=== PATIENT | female | born 1965 | race Caucasian/White ===

== ENCOUNTER 2021-06-19 00:31 | Emergency (ER) | payer OTHER ==
--- NOTE | 2021-06-19 01:37 | CT ---
INDICATION: Medial superior periorbital pain after a fall. COMPARISON: None available TECHNIQUE: CT examination of the facial bones is performed without contrast enhancement using spiral technique. 0.8 mm thick axial, and 1 mm thick coronal and sagittal sections were obtained from the data. Please note that all CT scans at this facility use dose modulation, iterative reconstruction, and/or weight-based dosing when appropriate to reduce radiation dose to as low as reasonably achievable. FINDINGS: There is mild left supraorbital soft tissue swelling with no sign of any associated fracture of the left superior orbital rim or adjacent frontal sinus. There is no sign of facial fracture on today`s study. The orbits, zygomatic arches, nasal bones, maxillae, and mandible are normal in appearance. The paranasal sinuses are clear. The mastoids are clear. The intraorbital soft tissue structures are unremarkable. The airway structures are normal in appearance. IMPRESSION: Mild left supraorbital soft tissue swelling with no sign of any associated fracture of the left superior orbital rim or adjacent frontal sinus. Otherwise normal CT of the facial bones with no sign of acute osseous injury. Please note that all CT scans at this facility use dose modulation, iterative reconstruction, and/or weight-based dosing when appropriate to reduce radiation dose to as low as reasonably achievable. Dictated by Dayne Lott MD @ 06/19/2021 1:36:47 AM (Electronically Signed)
--- NOTE | 2021-06-19 01:45 | EDM.PDOC ---
ED [facility] GENERAL MEDICAL PROBLEM - General Chief Complaint: General Stated Complaint: FELL ON ICE Time Seen by Provider: 06/19/21 00:35 - Related Data Allergies Allergy/AdvReac Type Severity Reaction Status Date / Time No Known Allergies Allergy Verified 06/19/21 00:37 Home Meds: Home Meds ALPRAZolam [Alprazolam] 1 dose PO DAILY 06/19/21 [History] Methotrexate 1 dose PO DAILY 06/19/21 [History] Sertraline [Zoloft] 1 dose PO DAILY 06/19/21 [History] Past Medical History - Infectious Disease History Infectious Disease History: Reports: Chicken Pox - Past Surgical History Musculoskeletal Surgical History: Reports: Hip Replacement, Knee Replacement Social & Family History - Recreational Drug Use Recreational Drug Use: No ED ROS GENERAL - Review of Systems Review Of Systems: Comprehensive ROS is negative, except as noted in HPI. ED EXAM, GENERAL - Physical Exam Exam: See Below Free Text/Narrative:: My physical exam is in the HPI Course - Vital Signs Last Recorded V/S: Last Vital Signs Temp 36.1 C 06/19/21 00:38 Pulse 92 06/19/21 00:38 Resp 16 06/19/21 00:38 BP 158/85 H 06/19/21 00:38 Pulse Ox 95 06/19/21 00:38 Departure - Departure Time of Disposition: 01:44 Disposition: Home, Self-Care 01 Condition: Good Clinical Impression: Periorbital contusion - Discharge Information Instructions: Contusion, [id number] Forms: ED Department Discharge Additional Instructions: Ice packs may still help. Return if double vision or new neurologic signs. [facility] - Primary Care [address] [place] [id number] [address] [address] The following information is given to patients seen in the emergency department who are being discharged to home. This information is to outline your options for follow-up care. We provide all patients seen in our emergency department with a follow-up referral. The need for follow-up, as well as the timing and circumstances, are variable depending upon the specifics of your emergency department visit. If you don't have a primary care physician on staff, we will provide you with a referral. We always advise you to contact your personal physician following an emergency department visit to inform them of the circumstance of the visit and for follow-up with them and/or the need for any referrals to a consulting specialist. The emergency department will also refer you to a specialist when appropriate. This referral assures that you have the opportunity for follow-up care with a specialist. All of these measure are taken in an effort to provide you with optimal care, which includes your follow-up. Under all circumstances we always encourage you to contact your private physician who remains a resource for coordinating your care. When calling for follow-up care, please make the office aware that this follow-up is from your recent emergency room visit. If for any reason you are refused follow-up, please contact the [facility] Emergency Depar tment at and asked to speak to the emergency department charge nurse. Sepsis Event Note (ED) - Evaluation Sepsis Screening Result: No Definite Risk - Focused Exam Vital Signs: Vital Signs Temp Pulse Resp BP Pulse Ox 06/19/21 00:38 36.1 C 92 16 158/85 H 95
== END 2021-06-19 01:53 | disposition home or self-care (01) ==
LOC: MW.ED 00:31
DX: S05.12XA Contusion of eyeball and orbital tissues, left eye, initial encounter (principal); W00.9XXA Unspecified fall due to ice and snow, initial encounter
CPT/HCPCS: 70480; 70480-26; 99283-25